=== PATIENT | male | born 1970 | race Two or more races ===

== ENCOUNTER 2021-10-29 15:26 | Emergency (ER) | payer SELFPAY ==
[~2021-10-29] VITALS: Ht 175.3 cm; Wt 90.0 kg
[2021-10-29 15:36] VITALS: BP 153/80
--- NOTE | 2021-10-29 16:09 | RAD ---
Exam: XR KNEE 3 VIEWS_RT History: Pain after falling on knee. Comparison: None. Findings: Osseous mineralization is normal. No acute fracture or dislocaton. Postsurgical features from below-k nee amputation. Internal fixation of the femur with intramedullary nail and distal interlocking screw s. No evidence of loosening. Degenerative changes of the knee with narrowing of the medial tibiofemor al compartment and degenerative changes of the proximal tibiofibular joint. Small knee effusion. Impression: 1. Small knee effusion without acute osseous abnormality. 2. ORIF of the distal femur and right below-knee amputation. Electronically signed by: Jarvis Gorman MD (10/29/2021 4:06 PM) [id number]
[2021-10-29] MEDS ORDERED: IBUP-1007 PO (16:19)
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
[2021-10-29] MEDS ORDERED: HYDROcodone/APAP 5/325MG 1 TAB TABLET PO ONE (16:45)
== END 2021-10-29 16:53 | disposition home or self-care (01) ==
LOC: ER 15:26
DX: M25.561 Pain in right knee (principal); F17.200 Nicotine dependence, unspecified, uncomplicated; G89.11 Acute pain due to trauma; W01.198A Fall on same level from slipping, tripping and stumbling with subsequent striking against other object, initial encounter; Y93.89 Activity, other specified; Y92.89 Other specified places as the place of occurrence of the external cause; Y99.8 Other external cause status
CPT/HCPCS: 73562; 99283